=== PATIENT | female | born 1950 | race Hispanic/Latino ===

== ENCOUNTER 2020-05-01 12:18 | Observation (INO) | payer MEDICARE, OTHER ==
[2020-05-01] MEDS ORDERED: ASPIRIN 81 MG CHEWABLE TABLET ONE (13:18)
[2020-05-01] MEDS ORDERED: ONDANSETRON 4 MG/2 ML VIAL ONE (13:18)
[2020-05-01] MEDS ORDERED: MORPHINE 2 MG/ML SYR ONE ×2 (13:18→16:46)
[2020-05-01] MEDS ORDERED: NA CHLORIDE 0.9% 1,000 ML ONE (13:18)
[2020-05-01 13:28] LABS: Absolute Lymphocytes (CBC) 1.9 K/uL (0.7-4.9); Basophils % 1.1 % (0-1.3); Hematocrit 39.4 % (36.0-45.0); Lymphocytes % 19.8 % (15.3-44.8); MPV 11.3 fL (7.6-11.3); RBC Red Blood Cell Count 4.62 M/uL (3.86-4.86)
[2020-05-01 13:35] LABS: Protime INR 0.95
--- NOTE | 2020-05-01 13:40 | RAD REPORT ---
EXAM DESCRIPTION: RAD - Chest Single View - 05/01/2020 1:29 pm CLINICAL HISTORY: PAIN COMPARISON: December 2017 TECHNIQUE: AP portable chest image was obtained 05/01/2020 1:29 pm . FINDINGS: Lungs are clear. Pulmonary vasculature within normal limits. Heart size is upper normal to slightly enlarged likely the affects of supine portable imaging. No significant failure or volume ov erload. No measurable pleural effusion and no pneumothorax. No acute bony abnormality seen. No acute aortic findings suspected. IMPRESSION: No acute cardiopulmonary process. No significant change from comparison study.
--- NOTE | 2020-05-01 13:41 | RAD REPORT ---
EXAM DESCRIPTION: RAD - Hip Right 2 View - 05/01/2020 1:29 pm CLINICAL HISTORY: PAIN COMPARISON: No comparisons FINDINGS: AP and frog-leg views of the right hip were obtained. There is no fracture or dislocation. No AVN or focal head abnormality. Lower lumbar degenerative morrison ges are present only partially imaged. No significant SI joint abnormality seen. No suspicious or sig nificant soft tissue finding. Cluster of calcific densities lateral to the greater trochanter are pro bably posttraumatic soft tissue calcifications or tendon calcifications. IMPRESSION: Negative right hip examination for acute or significant findings. The amount of overlying soft tissue is limiting. If there are ongoing concerns for pelvic, proximal f emur or soft tissue abnormality, follow-up CT imaging could be performed.
[2020-05-01 13:50] LABS: ALT/SGPT 29 U/L (12-78); AST/SGOT 21 U/L (15-37); Albumin 3.7 g/dL (3.4-5.0); Alkaline Phosphatase 50 U/L (45-117); BUN Blood Urea Nitrogen 33 mg/dL (7-18); Bicarbonate 24 mmol/L (21-32); Bilirubin Direct 0.1 mg/dL (0-0.2); Bilirubin Total 0.3 mg/dL (0.2-1.0); Glucose Level 85 mg/dL (74-106); Lipase 179 U/L (73-393); Magnesium 2.1 mg/dL (1.8-2.4); NT PRO-BNP 238 pg/mL (<125); Potassium 3.8 mmol/L (3.5-5.1); Protein, Total 7.7 g/dL (6.4-8.2); Sodium Level 143 mmol/L (136-145); Troponin (Emerg Dept Use Only) < 0.02 ng/mL (0.0-0.045)
[2020-05-01 14:20] LABS: Urine Blood NEGATIVE (NEG); Urine Glucose 3+ (NEG); Urine Protein NEGATIVE (NEG); Urine Specific Gravity 1.025 (1.005-1.030)
--- NOTE | 2020-05-01 14:21 | RAD REPORT ---
EXAM DESCRIPTION: CT - Angio Aorta For Dissection - 05/01/2020 1:44 pm CLINICAL HISTORY: CHEST PAIN, abdominal pain COMPARISON: None. TECHNIQUE: Dynamically enhanced 3 mm thick images of the chest, abdomen, and upper pelvis were obtai jolene during administration of approximately 150mL Isovue 370 IV contrast. Sagittal and coronal reconst ruction images were generated using MIP and reviewed. Exam utilizes a protocol to evaluate entire cou rse of the aorta. All CT scans are performed using dose optimization technique as appropriate and may include automated exposure control or mA/KV adjustment according to patient size. FINDINGS: Aorta is normal in diameter with no dissection or other acute aortic findings. Reconstruct ion images show no significant findings. Pulmonary arteries are normal as well. No cardiomegaly, pericardial thickening or pericardial effusio n. No mass or infiltrate in the lung parenchyma. No pleural thickening, pleural effusion or pneumothorax . No abnormal mediastinal or hilar mass or lymphadenopathy seen. No chest wall mass or abnormal axillar y lymphadenopathy. Celiac, SMA and renal arteries show no suspicious findings. Solid abdominal viscera and bowel show no significant findings. Bilateral renal cysts are present. Partially filled urinary bladder shows no suspicious finding. Uterus is absent. Atrophic ovaries are seen. No adnexal mass. Pelvic floor laxity is seen. Sigmoid diverticulosis is present without diverticulitis. No abnormal lymphadenopathy. No a bdominal wall or inguinal hernias identified. No peritoneal or retroperitoneal free air, free fluid o r inflammatory stranding. Disc and bone degenerative changes are present. No pelvic or proximal femur fracture identified. Soft tissue calcifications are present lateral to the right greater trochanter. Intramuscular edema and A eliza stranding present involving gluteus minimus muscle. IMPRESSION: Muscle and soft tissue injury lateral superior margin of the right greater trochanter. A t least some component is chronic with dystrophic calcifications present. No fracture of the femur or pelvis. No inguinal hernia or other finding for right-sided pelvic and hi p pain. No acute finding of the aorta. Patient has minimal atherosclerotic calcification. As detailed above, no other acute or significant findings identifiable. No other significant findings on chest, abdomen and upper pelvis examination.
--- NOTE | 2020-05-01 14:57 | ER ---
Nurse's Notes [facility] Name: Roseline Fink Age: 69 yrs Sex: Female : 1950 Arrival Date: 05/01/2020 Time: 12:24 Bed 19 Private MD: Abhi Quinn V Diagnosis: Chest pain, unspecified;Other bursitis of hip, right hip;Type 2 diabetes mellitus Presentation: 05/01 12:35 Chief complaint: Patient states: 1. R hip/R groin, R lower back pain for 2 days. Denies ll1 fever, denies urinary symptoms. 2. Generalized chest pressure for 3 days. No cough or fever. Coronavirus screen: Client denies travel out of the [place] in the last 14 days. difficulty breathing, fatigue, shortness of breath, Client presents with at least one sign or symptom that may indicate coronavirus-19. Standard/surgical mask placed on the client. Ebola Screen: Patient denies travel to an Ebola-affected area in the 21 days before illness onset. Initial Sepsis Screen: Does the patient meet any 2 criteria? No. Patient's initial sepsis screen is negative. Does the patient have a suspected source of infection? No. Patient's initial sepsis screen is negative. Risk Assessment: Do you want to hurt yourself or someone else? Patient reports no desire to harm self or others. Onset of symptoms was April 28, 2020. 12:35 Method Of Arrival: Ambulatory ll1 12:35 Acuity: RAYA 3 ll1 Historical: - Allergies: 12:35 No Known Allergies; ll1 - PMHx: 12:35 High Cholesterol; Hypertension; Diabetes - NIDDM; ll1 - PSHx: 12:35 Appendectomy; exp. lap-tumor removed from ovary; Hysterectomy; ll1 - Immunization history:: Flu vaccine is not up to date. - Social history:: Smoking status: Patient denies any tobacco usage or history of. - Family history:: not pertinent. Screenin:42 Abuse screen: Denies threats or abuse. Nutritional screening: No deficits noted. vg1 Tuberculosis screening: No symptoms or risk factors identified. Fall Risk No fall in past 12 months (0 pts). No secondary diagnosis (0 pts). IV access (20 points). Ambulatory Aid- None/Bed Rest/Nurse Assist (0 pts). Gait- Normal/Bed Rest/Wheelchair (0 pts) Mental Status- Oriented to own ability (0 pts). Total Adhikari Fall Scale indicates No Risk (0-24 pts). Assessment: 12:40 General: Appears in no apparent distress. comfortable, Behavior is calm, cooperative. vg1 Pain: Complains of pain in chest, Right hip and Right side of back Pain radiates to Pain in Right hip radiates down to right leg and up the right side of the back Pain currently is 10 out of 10 on a pain scale. Pain began 2-3 days ago. Neuro: Level of Consciousness is awake, alert, obeys commands, Oriented to person, place, time, situation. Cardiovascular: Heart tones S1 S2 Patient's skin is warm and dry. Respiratory: Airway is patent Respiratory effort is even, unlabored, Breath sounds are clear bilaterally. GI: No signs and/or symptoms were reported involving the gastrointestinal system. : No signs and/or symptoms were reported regarding the genitourinary system. EENT: No signs and/or symptoms were reported regarding the EENT system. Derm: Skin is intact, is healthy with good turgor. Musculoskeletal: Circulation, motion, and sensation intact. 14:21 Reassessment: Patient appears in no apparent distress at this time. Patient and/or vg1 family updated on plan of care and expected duration. Pain level reassessed. Patient is alert, oriented x 3, equal unlabored respirations, skin warm/dry/pink. Patient stated pain has subsided to 8/10. 19:57 Reassessment: attempted to call report. vg1 Vital Signs: 12:35 Weight 86.18 kg; Height 5 ft. 3 in. (160.02 cm); Pain 10/10; ll1 12:42 BP 162 / 55; Pulse 62; Resp 18; Pulse Ox 100% on R/A; vg1 13:20 BP 142 / 44; Pulse 58; Resp 20; Pulse Ox 100% ; vg1 14:00 BP 136 / 60; Pulse 58; Resp 22; Pulse Ox 100% on R/A; vg1 15:00 BP 138 / 50; Pulse 55; Resp 20; Pulse Ox 99% on R/A; vg1 15:45 BP 128 / 46; Pulse 55; Resp 22; Pulse Ox 98% on R/A; vg1 16:00 BP 142 / 58; Pulse 53; Resp 24; Pulse Ox 98% on R/A; vg1 17:00 BP 118 / 57; Pulse 55; Resp 20; Pulse Ox 97% on R/A; vg1 18:00 BP 114 / 72; Pulse 59; Resp 18; Pulse Ox 98% on R/A; vg1 19:00 BP 140 / 62; Pulse 57; Resp 20; Pulse Ox 100% on R/A; vg1 12:35 Body Mass Index 33.66 (86.18 kg, 160.02 cm) ll1 ED Course: 12:24 Patient arrived in ED. mr 12:24 Abhi Quinn MD is Private Physician. mr 12:28 Almaz Tse, RN is Primary Nurse. vg1 12:34 Arm band placed on Patient placed in an exam room, on a stretcher, Patient notified of ll1 wait time. 12:37 Richy Bal MD is Attending Physician. [facility] 12:37 Triage completed. ll1 12:42 Patient has correct armband on for positive identification. Placed in gown. Bed in low vg1 position. Side rails up X 1. 12:57 EKG done, by ED staff, reviewed by Richy Bal MD. vg1 13:15 Initial lab(s) drawn, by me, sent to lab. Inserted saline lock: 20 gauge in right vg1 antecubital area, using aseptic technique. Blood collected. 13:29 XRAY Chest (1 view) In Process Unspecified. EDMS 13:29 Hip Right 2 View XRAY In Process Unspecified. EDMS 13:44 CT Aorta for Dissection In Process Unspecified. EDMS 14:56 Abhi Quinn MD is Hospitalizing Provider. evan 15:58 COVID swab sent to lab. vg1 18:43 Repeat lab(s) drawn. by me, sent to lab. dh3 19:39 Primary Nurse role handed off by Almaz Tse, RN mw2 19:53 Almaz Tse, RN is Primary Nurse. vg1 19:56 No provider procedures requiring assistance completed. Patient admitted, IV remains in vg1 place. 20:00 Repeat lab(s) drawn. by me, sent to lab. jp3 Administered Medications: 13:24 Drug: NS 0.9% 1000 ml Route: IV; Rate: 125 ml/hr; Site: right antecubital; vg1 20:20 Follow up: IV Status: Infusion continued upon admission vg1 13:24 Drug: morphine 2 mg {Note: rass0.} Route: IVP; Site: right antecubital; vg1 14:34 Follow up: Response: Pain is decreased vg1 13:24 Drug: Zofran (Ondansetron) 4 mg Route: IVP; Site: right antecubital; vg1 14:34 Follow up: Response: No adverse reaction vg1 13:24 Drug: Aspirin Chewable Tablet 162 mg Route: PO; vg1 14:33 Follow up: Response: No adverse reaction vg1 15:36 Drug: Lovenox 1 mg/kg Route: Sub-Q; Site: abdomen; vg1 18:52 Follow up: Response: No adverse reaction vg1 15:36 Drug: Pepcid 20 mg Route: IVP; Site: right antecubital; vg1 18:52 Follow up: Response: No adverse reaction vg1 15:37 Drug: Mucomyst - Acetylcysteine 600 mg Route: PO; vg1 18:52 Follow up: Response: No adverse reaction vg1 16:48 Drug: morphine 2 mg Route: IVP; Site: right antecubital; vg1 18:53 Follow up: Response: Pain is unchanged, physician notified vg1 Outcome: 14:56 Decision to Hospitalize by ProviderRowdy gordon 20:17 Admitted to Med/surg accompanied by anita, via wheelchair, room 426, with chart, Report vg1 called to BRADEN Menard 20:17 Condition: stable 20:17 Instructed on the need for admit. 20:30 Patient left the ED. mw2 Signatures: Dispatcher [employer] EDPA Richy Bal MD MD cha Rivera, Mary mr Bruno, Caity 3 Radha Montesinos mw2 Franklin Matthews jp3 Almaz Tse, RN RN vg1 Savanna Mak RN RN ll1
--- NOTE | 2020-05-01 14:57 | EDPHYS ---
Physician Documentation [facility] Name: Roseline Fink Age: 69 yrs Sex: Female : 1950 Arrival Date: 05/01/2020 Time: 12:24 Bed 19 Private MD: Abhi Quinn V ED Physician Richy Bal HPI: 05/01 14:40 This 69 yrs old Female presents to ER via Ambulatory with complaints of Hip evan Pain, Back Pain. 14:40 The patient or guardian reports pain. that occurred at home. The complaints affect the evan pelvis. Onset: The symptoms/episode began/occurred 2 day(s) ago. Modifying factors: The symptoms are alleviated by nothing, the symptoms are aggravated by nothing. Associated signs and symptoms: Loss of consciousness: the patient experienced no loss of consciousness, Pertinent positives: weakness. Severity of symptoms: At their worst the symptoms were mild, moderate, in the emergency department the symptoms have improved, mildly. The patient has experienced similar episodes in the past, several times. Historical: - Allergies: 12:35 No Known Allergies; ll1 - PMHx: 12:35 High Cholesterol; Hypertension; Diabetes - NIDDM; ll1 - PSHx: 12:35 Appendectomy; exp. lap-tumor removed from ovary; Hysterectomy; ll1 - Immunization history:: Flu vaccine is not up to date. - Social history:: Smoking status: Patient denies any tobacco usage or history of. - Family history:: not pertinent. ROS: 14:40 Constitutional: Negative for fever, chills, and weight loss, Eyes: Negative for injury, evan pain, redness, and discharge, ENT: Negative for injury, pain, and discharge, Neck: Negative for injury, pain, and swelling, Respiratory: Negative for shortness of breath, cough, wheezing, and pleuritic chest pain, Abdomen/GI: Negative for abdominal pain, nausea, vomiting, diarrhea, and constipation, Back: Negative for injury and pain, : Negative for injury, bleeding, discharge, and swelling, MS/Extremity: Negative for injury and deformity, Skin: Negative for injury, rash, and discoloration, Neuro: Negative for headache, weakness, numbness, tingling, and seizure, Psych: Negative for depression, anxiety, suicide ideation, homicidal ideation, and hallucinations, Allergy/Immunology: Negative for hives, rash, and allergies, Endocrine: Negative for neck swelling, polydipsia, polyuria, polyphagia, and marked weight changes, Hematologic/Lymphatic: Negative for swollen nodes, abnormal bleeding, and unusual bruising. 14:40 Cardiovascular: Positive for chest pain. Exam: 14:40 Constitutional: This is a well developed, well nourished patient who is awake, alert, evan and in no acute distress. Head/Face: Normocephalic, atraumatic. Eyes: Pupils equal round and reactive to light, extra-ocular motions intact. Lids and lashes normal. Conjunctiva and sclera are non-icteric and not injected. Cornea within normal limits. Periorbital areas with no swelling, redness, or edema. ENT: Nares patent. No nasal discharge, no septal abnormalities noted. Tympanic membranes are normal and external auditory canals are clear. Oropharynx with no redness, swelling, or masses, exudates, or evidence of obstruction, uvula midline. Mucous membranes moist. Neck: Trachea midline, no thyromegaly or masses palpated, and no cervical lymphadenopathy. Supple, full range of motion without nuchal rigidity, or vertebral point tenderness. No Meningismus. Chest/axilla: Normal chest wall appearance and motion. Nontender with no deformity. No lesions are appreciated. Cardiovascular: Regular rate and rhythm with a normal S1 and S2. No gallops, murmurs, or rubs. Normal PMI, no JVD. No pulse deficits. Respiratory: Lungs have equal breath sounds bilaterally, clear to auscultation and percussion. No rales, rhonchi or wheezes noted. No increased work of breathing, no retractions or nasal flaring. Abdomen/GI: Soft, non-tender, with normal bowel sounds. No distension or tympany. No guarding or rebound. No evidence of tenderness throughout. Back: No spinal tenderness. No costovertebral tenderness. Full range of motion. Skin: Warm, dry with normal turgor. Normal color with no rashes, no lesions, and no evidence of cellulitis. MS/ Extremity: Pulses equal, no cyanosis. Neurovascular intact. Full, normal range of motion. Neuro: Awake and alert, GCS 15, oriented to person, place, time, and situation. Cranial nerves II-XII grossly intact. Motor strength 5/5 in all extremities. Sensory grossly intact. Cerebellar exam normal. Normal gait. Psych: Awake, alert, with orientation to person, place and time. Behavior, mood, and affect are within normal limits. 14:40 Musculoskeletal/extremity: DVT Exam: No signs of deep vein thrombosis. no pain, no swelling, no tenderness, negative Homans' sign noted on exam, no appreciated bluish discoloration, no erythema, no increased warmth. Vital Signs: 12:35 Weight 86.18 kg; Height 5 ft. 3 in. (160.02 cm); Pain 10/10; ll1 12:42 BP 162 / 55; Pulse 62; Resp 18; Pulse Ox 100% on R/A; vg1 13:20 BP 142 / 44; Pulse 58; Resp 20; Pulse Ox 100% ; vg1 14:00 BP 136 / 60; Pulse 58; Resp 22; Pulse Ox 100% on R/A; vg1 15:00 BP 138 / 50; Pulse 55; Resp 20; Pulse Ox 99% on R/A; vg1 15:45 BP 128 / 46; Pulse 55; Resp 22; Pulse Ox 98% on R/A; vg1 16:00 BP 142 / 58; Pulse 53; Resp 24; Pulse Ox 98% on R/A; vg1 17:00 BP 118 / 57; Pulse 55; Resp 20; Pulse Ox 97% on R/A; vg1 18:00 BP 114 / 72; Pulse 59; Resp 18; Pulse Ox 98% on R/A; vg1 19:00 BP 140 / 62; Pulse 57; Resp 20; Pulse Ox 100% on R/A; vg1 12:35 Body Mass Index 33.66 (86.18 kg, 160.02 cm) ll1 MDM: 12:37 Patient medically screened. evan 14:43 Differential diagnosis: bursitis, arthritis, strain. Data reviewed: vital signs, nurses evan notes, lab test result(s), EKG, radiologic studies, CT scan, plain films. Data interpreted: quality assurance monitor final: rate is 59 beats/min, rhythm is sinus bradycardia. Test interpretation: by ED physician or midlevel provider: ECG, plain radiologic studies. Counseling: I had a detailed discussion with the patient and/or guardian regarding: the historical points, exam findings, and any diagnostic results supporting the discharge/admit diagnosis, lab results, radiology results, the need for outpatient follow up. 05/01 12:45 Order name: Basic Metabolic Panel [facility] 05/01 12:45 Order name: CBC with Diff [facility] 05/01 12:45 Order name: LFT's [facility] 05/01 12:45 Order name: Magnesium; Complete Time: 14:35 [facility] 05/01 12:45 Order name: NT PRO-BNP; Complete Time: 14:35 [facility] 05/01 12:45 Order name: PT-INR; Complete Time: 14:35 [facility] 05/01 12:45 Order name: Troponin (emerg Dept Use Only); Complete Time: 14:35 [facility] 05/01 12:45 Order name: Lipase; Complete Time: 14:35 [facility] 05/01 12:46 Order name: Basic Metabolic Panel; Complete Time: 14:35 [facility] 05/01 12:46 Order name: CBC with Automated Diff; Complete Time: 14:35 [facility] 05/01 12:46 Order name: Liver (Hepatic) Function; Complete Time: 14:35 [facility] 05/01 13:08 Order name: Urine Dipstick--Ancillary (enter results) 05/01 13:08 Order name: Urine Dipstick-Ancillary; Complete Time: 14:35 [facility] 05/01 14:55 Order name: COVID-19 : Document "Date of Symptom Onset" if Symptomatic. [facility] 05/01 12:45 Order name: XRAY Chest (1 view); Complete Time: 14:35 [facility] 05/01 12:45 Order name: EKG; Complete Time: 12:46 [facility] 05/01 12:45 Order name: Hip Right 2 View XRAY; Complete Time: 14:35 [facility] 05/01 12:45 Order name: CT Aorta for Dissection; Complete Time: 14:35 [facility] 05/01 16:02 Order name: CREATININE WHOLE BLOOD [facility] 05/01 16:46 Order name: SARS-COV-2 RT PCR [facility] 05/01 17:53 Order name: Glucose, Ancillary Testing [facility] 05/01 18:52 Order name: Glucose, Ancillary Testing [facility] 05/01 19:23 Order name: Troponin I [facility] 05/01 12:45 Order name: Cardiac monitoring; Complete Time: 12:56 [facility] 05/01 12:45 Order name: EKG - Nurse/Tech; Complete Time: 12:57 [facility] 05/01 12:45 Order name: IV Saline Lock; Complete Time: 13:25 [facility] 05/01 12:45 Order name: Labs collected and sent; Complete Time: 13:25 [facility] 05/01 12:45 Order name: O2 Per Protocol; Complete Time: 12:57 [facility] 05/01 12:45 Order name: O2 Sat Monitoring; Complete Time: 12:57 [facility] 05/01 12:45 Order name: Urine Dipstick-Ancillary (obtain specimen); Complete Time: 13:07 [facility] 05/01 15:02 Order name: CONS Physician Consult EDMS Administered Medications: 13:24 Drug: NS 0.9% 1000 ml Route: IV; Rate: 125 ml/hr; Site: right antecubital; vg1 20:20 Follow up: IV Status: Infusion continued upon admission vg1 13:24 Drug: morphine 2 mg {Note: rass0.} Route: IVP; Site: right antecubital; vg1 14:34 Follow up: Response: Pain is decreased vg1 13:24 Drug: Zofran (Ondansetron) 4 mg Route: IVP; Site: right antecubital; vg1 14:34 Follow up: Response: No adverse reaction vg1 13:24 Drug: Aspirin Chewable Tablet 162 mg Route: PO; vg1 14:33 Follow up: Response: No adverse reaction vg1 15:36 Drug: Lovenox 1 mg/kg Route: Sub-Q; Site: abdomen; vg1 18:52 Follow up: Response: No adverse reaction vg1 15:36 Drug: Pepcid 20 mg Route: IVP; Site: right antecubital; vg1 18:52 Follow up: Response: No adverse reaction vg1 15:37 Drug: Mucomyst - Acetylcysteine 600 mg Route: PO; vg1 18:52 Follow up: Response: No adverse reaction vg1 16:48 Drug: morphine 2 mg Route: IVP; Site: right antecubital; vg1 18:53 Follow up: Response: Pain is unchanged, physician notified vg1 Disposition: 05/01/20 14:56 Hospitalization ordered by Abhi Quinn for Observation. Preliminary diagnosis are Chest pain, unspecified, Other bursitis of hip, right hip, Type 2 diabetes mellitus. - Bed requested for Telemetry/MedSurg (observation). - Status is Observation. mw2 - Condition is Fair. - Problem is new. - Symptoms have improved. Signatures: Dispatcher [employer] EDRichy Delgado MD MD cha Garcia, Cindy, RN RN cg Radha Montesinos mw2 Almaz Tse, RN RN 1 Savanna Mak, RN RN ll1 Corrections: (The following items were deleted from the chart) 19:50 14:56 Hospitalization Ordered by Abhi Quinn MD for Observation. Preliminary diagnosis cg is Chest pain, unspecified; Other bursitis of hip, right hip; Type 2 diabetes mellitus. Bed requested for Telemetry/MedSurg (observation). Status is Observation. Condition is Fair. Problem is new. Symptoms have improved. [facility] 20:30 19:50 05/01/2020 14:56 Hospitalization Ordered by Abhi Quinn MD for Observation. mw2 Preliminary diagnosis is Chest pain, unspecified; Other bursitis of hip, right hip; Type 2 diabetes mellitus. Bed requested for Telemetry/MedSurg (observation). Status is Observation. Condition is Fair. Problem is new. Symptoms have improved. cg
[2020-05-01] MEDS ORDERED: ACETYLCYST 20% 800 MG/4 ML VIAL PO ONE (15:00)
[2020-05-01] MEDS ORDERED: ENOXAPARIN 100 MG/ML SYR SQ ONE (15:45)
[2020-05-01] MEDS ORDERED: FAMOTIDINE 20 MG/2 ML VIAL IV ONE (15:45)
[2020-05-01] MEDS ORDERED: ONDANSETRON 4 MG/2 ML VIAL IV PRN (16:25)
[2020-05-01] MEDS ORDERED: GLUCAGON 1 MG/VIAL IM PRN (16:25)
[2020-05-01] MEDS: INSULIN -REGULAR HUMAN 50 UNIT/0.5 ML ML SQ SCH ×2 (16:30→21:00)
[2020-05-01] MEDS ORDERED: D50W 25 GM/50 ML VIAL IV PRN (17:01)
[2020-05-01] MEDS ORDERED: ACETAMINOPHEN 325 MG TABLET PO PRN (17:06)
[2020-05-01] MEDS ORDERED: MORPHINE 2 MG/ML SYR IV PRN (17:08)
[2020-05-01] MEDS ORDERED: D50W 25 GM/50 ML SYRINGE IV ONE (18:06)
[2020-05-01 18:42] VITALS: BMI 34.7
[2020-05-01] MEDS: FAMOTIDINE 20 MG/2 ML VIAL IV SCH (21:00)
[2020-05-01] MEDS: ENOXAPARIN 80 MG/0.8 ML SQ SCH (21:00)
--- NOTE | 2020-05-01 21:00 | P.SSS ---
Patient History Date of Service: 05/01/20 Reason for admission: R HIP PAIN AND CHEST PAIN History of Present Illness: PAULINA CAME TO ER FOR R SIDE LATERAL HIP PAIN THAT WAS INTRACTABLE. SHE MENTIONED ABOUT HAVING CHEST HEAVINESS OFF AND ON LASTING FOR 2 MINUTES WHILE RESTING. SHE HAS NO FEVER. SHE IS HIGH RISK FOR CAD WITH DM, OBESITY, HTN ETC. Allergies No Known Allergies Allergy (Verified 02/22/16 10:23) - Past Medical/Surgical History Has patient received pneumonia vaccine in the past: Yes - Social History Smoking Status: Never smoker Alcohol use: No CD- Drugs: No Caffeine use: Yes Review of Systems 10-point ROS is otherwise unremarkable Physical Examination - Vital Signs Blood Pressure: 114/72 Pulse: 59 Respirations: 18 Pulse Ox (%): 98 - Physical Exam General: Alert, In no apparent distress, Obese HEENT: Atraumatic, PERRLA, Mucous membr. moist/pink, EOMI, Sclerae nonicteric Neck: Supple, 2+ carotid pulse no bruit, No LAD, Without JVD or thyroid abnormality Respiratory: Clear to auscultation bilaterally, Normal air movement Cardiovascular: Regular rate/rhythm, Normal S1 S2 Gastrointestinal: Normal bowel sounds, No tenderness Musculoskeletal: No tenderness Integumentary: No rashes Neurological: Normal gait, Normal speech, Normal strength at 5/5 x4 extr, Normal tone, Normal affect Lymphatics: No axilla or inguinal lymphadenopathy - Studies Laboratory Data (last 24 hrs) 05/01/20 13:15: PT 10.9, INR 0.95 05/01/20 13:15: WBC 9.60, Hgb 12.6, Hct 39.4, Plt Count 306 05/01/20 13:15: Sodium 143, Potassium 3.8, BUN 33 H, Creatinine 1.26, Glucose 85, Magnesium 2.1, Total Bilirubin 0.3, AST 21, ALT 29, Alkaline Phosphatase 50, Lipase 179 - Diagnosis (Problem(s)) (1) Atypical chest pain Current Visit: Yes Status: Acute Plan: SHE IS HIGH RISK FOR CAD. WILL NEED ST TEST OR CATH. CARDIOLOGY IS CONSULTED. LOVENOX SC ASPIRIN DAILY. (2) Diabetes Current Visit: Yes Status: Chronic Plan: SHE HAS BEEN NON COMPLIANT ABOUT DIET FOR LAST COUPLE OF YEARS. LAST A1C WAS BETTER COMPARED TO BEFORE DOWN TO 7 RANGE AFTER LOT OF PERSUATION ABOUT DIET AND MEDS LIKE TRULICITY. Qualifiers: Diabetes mellitus type: type 2 (3) HTN (hypertension) Current Visit: Yes Status: Chronic Qualifiers: Hypertension type: essential hypertension Qualified Code(s): I10 - Essential (primary) hypertension (4) Obesity (BMI 30-39.9) Current Visit: Yes Status: Chronic Plan: WEIGHT CONTROL IS A MUST BUT DOES NOT HAPPEN MUCH MOST PATIENTS DON'T FOLLOW PALEO DIET OR ANY DIET ADVISE TO CONTROL CALORIES. (5) Trochanteric bursitis, right hip Current Visit: Yes Status: Acute Plan: DIET ADVISE HAS BEEN GIVEN MANY TIMES TO LOSE WEIGHT. SHE SHOULD NOT GET STEROIDS TOO OFTEN SHE IS A POORLY CONTROLLED DIABETIC. - Disposition Disposition: ROUTINE DISCHARGE
[2020-05-01] MEDS: carvediloL 6.25 MG TAB PO SCH (22:29)
[2020-05-01] MEDS: LOSARTAN POTASSIUM 50 MG TABLET PO SCH (22:29)
[2020-05-01] MEDS: TRAMADOL HCL 50 MG TAB PO PRN (22:29)
[2020-05-01 23:33] VITALS: O2SAT 96
[2020-05-02 04:04] LABS: Absolute Lymphocytes (CBC) 1.7 K/uL (0.7-4.9); Basophils % 0.5 % (0-1.3); Hematocrit 32.8 % (36.0-45.0); Lymphocytes % 14.4 % (15.3-44.8); MPV 11.5 fL (7.6-11.3); RBC Red Blood Cell Count 3.87 M/uL (3.86-4.86)
[2020-05-02 04:12] LABS: Potassium 4.6 mmol/L (3.5-5.1)
[2020-05-02] MEDS: INSULIN -REGULAR HUMAN 50 UNIT/0.5 ML ML SQ SCH ×2 (07:30→11:30)
[2020-05-02] MEDS ORDERED: ASPIRIN EC 81 MG TAB PO SCH (09:00)
[2020-05-02] MEDS: ENOXAPARIN 80 MG/0.8 ML SQ SCH (09:00)
[2020-05-02] MEDS: TRAMADOL HCL 50 MG TAB PO PRN (09:21)
[2020-05-02] MEDS: carvediloL 6.25 MG TAB PO SCH (09:21)
[2020-05-02] MEDS: LOSARTAN POTASSIUM 50 MG TABLET PO SCH (09:22)
[2020-05-02] MEDS: FAMOTIDINE 20 MG/2 ML VIAL IV SCH (09:23)
--- NOTE | 2020-05-02 09:44 | CON ---
Date of Consultation: 05/02/2020 Reason For Consultation: Atypical chest pain. History Of Present Illness: Ms. Fink is a 69-year-old woman, has a history of hypertension, diabe tim, and dyslipidemia. In 2016, she underwent a normal heart catheterization. She actually came int o the hospital with the hip pain that is thought secondary to bursitis. While she is in the hospital , she complains of having had chest pain for the last few weeks that is substernal, pressure-like abdi t has been going on basically constantly for few days. She also has sharp stabbing chest pain. Sagar es nausea, vomiting, diaphoresis, PND, orthopnea, pedal edema, palpitations, or syncope. She has alr robel ruled out for NE. Past Medical History: As stated above. Allergies: NONE. Review of Systems: Negative. Social History: Negative. Family History: Noncontributory. Physical Examination: Vital Signs: Stable, afebrile. HEENT: Negative. Neck: Supple. No bruit. Chest: Clear. Cardiac: Normal. Abdomen: Benign. Extremities: Revealed no clubbing, cyanosis, or edema. Diagnostic Data: All normal. Impression And Plan: Atypical chest pain in a patient with history of diabetes, hypertension, and dy slipidemia. Has had normal heart catheterization 5 years ago, had negative cardiac workup so far. S he takes rifampin, Coreg, insulin, and other diabetic medication. I will continue her present regime n. I am comfortable with her going home. [facility] f sonia. SARAH/EILEEN Voice ID: [id number] Report ID: [id number]
[2020-05-02] MEDS ORDERED: HOME MED 1 EA UNK (Budesonide/Formoterol Fumarate [Symbicort 160-4.5 Mcg Inhaler] 10.2 GM IH PRN (10:49)
[2020-05-02 12:51] VITALS: BP 143/70; TEMP 98.1
[2020-05-02] MEDS ORDERED: HYDRALAZINE 25 MG PO SCH (14:00)
[2020-05-02] MEDS ORDERED: HOME MED 1 EA UNK (Pravastatin Sodium [Pravastatin Sodium] 20 MG Tablet) PO SCH (21:00)
[2020-05-02] MEDS ORDERED: HOME MED 1 EA UNK (Levocetirizine Dihydrochloride [Xyzal] 5 MG Tablet) PO SCH (21:00)
[2020-05-02] MEDS ORDERED: CARVEDILOL 12.5 MG PO SCH (21:00)
[2020-05-02] MEDS ORDERED: LIDOCAINE 4% PATCH TOP ONE (22:07)
--- NOTE | 2020-05-03 05:42 | EKG ---
Test Date: 2020-05-01 Test Time: 12:51:23 Intake Nurse: SHELBY MEASUREMENT RESULTS: Intervals: Rate: 59 RI: QRSD: 90 QT: 396 QTc: 392 [place]: P: RI: QRS: 27 T: -39 INTERPRETIVE STATEMENTS: Junctional rhythm ST & T wave abnormality, consider inferior ischemia ST & T wave abnormality, consider anterior ischemia Abnormal ECG Compared to ECG 08/04/2001 13:49:00 Junctional rhythm now present Possible ischemia now present Sinus rhythm no longer present ST (T wave) deviation still present Electronically Signed On 05-03-20 05:36:15 [employer] by Ankit Centeno
[2020-05-03] MEDS ORDERED: EMPAGLIFLOZIN PO SCH (08:00)
[2020-05-03] MEDS ORDERED: METFORMIN HCL PO SCH (08:00)
[2020-05-03] MEDS ORDERED: HOME MED 1 EA UNK (Losartan Potassium [Losartan Potassium] 100 MG Tablet) PO SCH (09:00)
[2020-05-03] MEDS ORDERED: HOME MED 1 EA UNK (Aspirin [Aspirin] 81 MG Tab.Chew) PO SCH (09:00)
[2020-05-03] MEDS ORDERED: HOME MED 1 EA UNK (Hydrochlorothiazide [Hydrochlorothiazide] 12.5 MG Tablet) PO SCH (09:00)
[2020-05-03] MEDS ORDERED: FENOFIBRATE 145 MG PO SCH (09:00)
== END 2020-05-02 15:19 | disposition home or self-care (01) ==
LOC: ER 12:18 → ERHOLD 15:06 → 4TH 20:20
PROVIDERS: ADMIT Internal Medicine; ATTEND Internal Medicine
DX: R07.89 Other chest pain (principal); M70.61 Trochanteric bursitis, right hip; E11.9 Type 2 diabetes mellitus without complications; I10 Essential (primary) hypertension; E78.5 Hyperlipidemia, unspecified; E78.00 Pure hypercholesterolemia, unspecified; E66.9 Obesity, unspecified; Z68.30 Body mass index [BMI] 30.0-30.9, adult; Z79.4 Long term (current) use of insulin; Z20.822 Contact with and (suspected) exposure to COVID-19; R07.9 Chest pain, unspecified
CPT/HCPCS: 96361; 93005; 85025 ×2; 80048 ×2; 36415; 83735; 85610; 82565; 82947 ×5; 80076; 81003; 84484 ×3; 83690; 83880; 71275; 74175; 71045; 73502; 96375; 96372; 96374; 99285; U0003; Q9967; J1650; J2270 ×2; J7030; J2405 ×2; G0378 ×3

== ENCOUNTER 2022-08-01 09:54 | Emergency (ER) | payer OTHER ==
[2022-08-01] MEDS ORDERED: FAMOTIDINE 20 MG/2 ML VIAL IV ONE (11:03)
[2022-08-01] MEDS ORDERED: METHYLPREDNISOLONE 125 MG INJ ONE (11:03)
[2022-08-01] MEDS ORDERED: NA CHLORIDE 0.9% 500 ML ONE (11:03)
[2022-08-01] MEDS ORDERED: DIPHENHYDRAMINE 50 MG/ML VIAL ONE (11:03)
--- NOTE | 2022-08-01 12:53 | ER ---
Nurse's Notes [facility] Name: Roseline Fink Age: 71 yrs Sex: Female : 1950 Arrival Date: 08/01/2022 Time: 09:54 Bed 9 Private MD: Diagnosis: Acute Allergic Reaction Presentation: 08/01 10:39 Chief complaint: Patient states: Allergic reaction maybe to Flonase from, since jl7 yesterday; took Benadryl and hydrocortisone, swelling noted to upper eye lids , redness to right side of neck, pt reports wheezing and coughing. Coronavirus screen: At this time, the client does not indicate any symptoms associated with coronavirus-19. Ebola Screen: No symptoms or risks identified at this time. Onset: The symptoms/episode began/occurred yesterday. Anaphylaxis evaluation, no signs or symptoms of anaphylaxis were noted. Initial Sepsis Screen: Does the patient meet any 2 criteria? No. Patient's initial sepsis screen is negative. Does the patient have a suspected source of infection? No. Patient's initial sepsis screen is negative. Risk Assessment: Do you want to hurt yourself or someone else? Patient reports no desire to harm self or others. Onset of symptoms was July 31, 2022. 10:39 Method Of Arrival: Ambulatory jl7 10:39 Acuity: RAYA 3 jl7 Triage Assessment: 10:42 General: Appears in no apparent distress. uncomfortable, Behavior is calm, cooperative, jl7 appropriate for age. Pain: Denies pain. Derm: Rash noted that is itchy, red, on right eye, left eye, chest and neck. Historical: - Allergies: 10:42 No Known Allergies; jl7 - Home Meds: 10:42 Humulin 70/30 U-100 Insulin subcutaneous Sub-Q [Active]; Synjardy oral [Active]; jl7 carvedilol oral [Active]; losartan oral [Active]; fenofibrate oral [Active]; Hydralazine Oral [Active]; - PMHx: 10:42 Diabetes - NIDDM; High Cholesterol; Hypertension; jl7 - PSHx: 10:42 Total abdominal hysterectomy; jl7 - Immunization history:: Adult Immunizations unknown. - Social history:: Smoking status: Patient denies any tobacco usage or history of. Screenin:10 [facility] ED Fall Risk Assessment (Adult) History of falling in the last 3 months, kb3 including since admission No falls in past 3 months (0 pts) Confusion or Disorientation No (0 pts) Intoxicated or Sedated No (0 pts) Impaired Gait No (0 pts) Mobility Assist Device Used No (0 pt) Altered Elimination No (0 pt) Score/Fall Risk Level 0 - 2 = Low Risk Oriented to surroundings, Maintained a safe environment, Educated pt \T\ family on fall prevention, incl call for assistance when getting out of bed, Assessed \T\ reinforced patient's understanding of fall precautions, Provided non-skid footwear, Hourly rounding (assess needs \T\ fall precautionary measures) done, Used ambulatory aids as needed (educated on \T\ assisted with), Used gait belt as appropriate. Abuse screen: Denies threats or abuse. Nutritional screening: No deficits noted. Tuberculosis screening: No symptoms or risk factors identified. Assessment: 11:10 Respiratory: Airway is patent Respiratory effort is even, unlabored, Breath sounds are kb3 clear bilaterally. 13:03 Reassessment: Patient appears in no apparent distress at this time. Patient and/or jl7 family updated on plan of care and expected duration. Pain level reassessed. Patient is alert, oriented x 3, equal unlabored respirations, skin warm/dry/pink. Patient states feeling better. Patient states symptoms have improved. Vital Signs: 10:39 Pulse 48; Resp 17; Temp 97.2; Pulse Ox 99% ; Weight 86.18 kg; Height 5 ft. 2 in. ; Pain jl7 0/10; 13:03 BP 184 / 71; Pulse 48; Resp 15; Temp 97.9; Pulse Ox 100% ; Pain 0/10; jl7 10:39 Body Mass Index 34.75 (86.18 kg, 157.48 cm) jl7 10:39 Pain Scale: Adult jl7 13:03 Pain Scale: Adult jl7 ED Course: 09:55 Patient arrived in ED. ts1 09:58 Joss Hong PA is PHCP. jmm 09:58 Sreedhar Morgan MD is Attending Physician. jmm 10:42 Triage completed. jl7 10:42 Arm band placed on right wrist. jl7 11:10 Patient has correct armband on for positive identification. kb3 11:10 No provider procedures requiring assistance completed. Inserted saline lock: 22 gauge kb3 in right antecubital area, using aseptic technique. 13:03 Ludmila Peterson, RN is Primary Nurse. jl7 13:03 IV discontinued, intact, bleeding controlled, No redness/swelling at site. Pressure jl7 dressing applied. Administered Medications: 11:11 Drug: MethylPrednisoLONE IVP 125 mg Route: IVP; Site: right antecubital; kb3 13:04 Follow up: Response: No adverse reaction; Marked relief of symptoms jl7 11:11 Drug: Famotidine IVP 20 mg Route: IVP; Site: right antecubital; kb3 13:04 Follow up: Response: No adverse reaction; Marked relief of symptoms jl7 11:11 Drug: diphenhydrAMINE IVP 12.5 mg Route: IVP; Site: right antecubital; kb3 13:04 Follow up: Response: No adverse reaction; Marked relief of symptoms jl7 11:12 Drug: NS 0.9% IV 500 ml Route: IV; Rate: bolus; Site: right antecubital; kb3 13:04 Follow up: Response: No adverse reaction; IV Intake: 500ml jl7 Medication: 11:10 VIS not applicable for this client. kb3 Intake: 13:04 IV: 500ml; Total: 500ml. jl7 Outcome: 12:52 Discharge ordered by . rodriguez 13:03 Discharged to home ambulatory. jlBlanco 13:03 Condition: stable 13:03 Discharge instructions given to patient, family, Instructed on discharge instructions, follow up and referral plans. medication usage, Demonstrated understanding of instructions, follow-up care, medications, Prescriptions given X 2. 13:05 Patient left the ED. jl7 Signatures: Joss Hong PA PA jmm Leal, Jahala RN RN jl7 Paola Esparza RN RN kb3 Linda Prince PAS PAS ts1
--- NOTE | 2022-08-01 12:53 | EDPHYS ---
Physician Documentation [facility] Name: Roseline Fink Age: 71 yrs Sex: Female : 1950 Arrival Date: 08/01/2022 Time: 09:54 Bed 9 Private MD: ED Physician Sreedhar Morgan HPI: 08/01 10:45 This 71 yrs old Female presents to ER via Ambulatory with complaints of jmm Allergic Reaction. 10:45 Is a 71-year-old female with history of diabetes mellitus, hyperlipidemia, hypertension jmm the presents emerged department with complaints of itching, facial swelling which began last night. Patient states she took Flonase yesterday. Also complains of some shortness of breath and wheezing.. Historical: - Allergies: 10:42 No Known Allergies; jl7 - Home Meds: 10:42 Humulin 70/30 U-100 Insulin subcutaneous Sub-Q [Active]; Synjardy oral [Active]; jl7 carvedilol oral [Active]; losartan oral [Active]; fenofibrate oral [Active]; Hydralazine Oral [Active]; - PMHx: 10:42 Diabetes - NIDDM; High Cholesterol; Hypertension; jl7 - PSHx: 10:42 Total abdominal hysterectomy; jl7 - Immunization history:: Adult Immunizations unknown. - Social history:: Smoking status: Patient denies any tobacco usage or history of. ROS: 10:45 Constitutional: Negative for fever, chills, and weight loss, Cardiovascular: Negative jmm for chest pain, palpitations, and edema. 10:45 Respiratory: Positive for cough. 10:45 Skin: Positive for rash. 10:45 All other systems are negative. Exam: 10:45 Constitutional: This is a well developed, well nourished patient who is awake, alert, jmm and in no acute distress. 10:45 Eyes: EOMI, no conjunctival erythema appreciated ENT: Moist Mucus Membranes Neck: Trachea midline, Supple 10:45 Chest/axilla: Normal chest wall appearance and motion. Cardiovascular: Regular rate and rhythm. No edema appreciated Respiratory: Normal respirations, no respiratory distress appreciated Abdomen/GI: Non distended Back: Normal ROM 10:45 MS/ Extremity: Moves all extremities, no obvious deformities appreciated, no edema noted to the lower extremities Neuro: Awake and alert Psych: Behavior is normal, Mood is normal, Patient is cooperative and pleasant 10:45 Head/face: Noted is swelling, that is mild, of the right eye and left eye. 10:45 ENT: Posterior pharynx: is normal. 10:45 Skin: on the neck. Vital Signs: 10:39 Pulse 48; Resp 17; Temp 97.2; Pulse Ox 99% ; Weight 86.18 kg; Height 5 ft. 2 in. ; Pain jl7 0/10; 13:03 BP 184 / 71; Pulse 48; Resp 15; Temp 97.9; Pulse Ox 100% ; Pain 0/10; jl7 10:39 Body Mass Index 34.75 (86.18 kg, 157.48 cm) jl7 10:39 Pain Scale: Adult jl7 13:03 Pain Scale: Adult jl7 MDM: 10:45 Patient medically screened. rodriguez 17:15 Differential diagnosis: urticaria. Data reviewed: vital signs, nurses notes. I rodriguez considered the following discharge prescriptions or medication management in the emergency department Medications were administered in the Emergency Department. See MAR. Counseling: I had a detailed discussion with the patient and/or guardian regarding: the historical points, exam findings, and any diagnostic results supporting the discharge/admit diagnosis, the need for outpatient follow up, to return to the emergency department if symptoms worsen or persist or if there are any questions or concerns that arise at home. ED course: Patient states feeling much better. No respiratory distress appreciated. No pharyngeal edema appreciated. Patient advised to follow-up with PCP and otherwise given strict return precautions. Patient understood and agrees plan of care.. 08/01 10:46 Order name: Saline Lock; Complete Time: 11:11 [facility] Administered Medications: 11:11 Drug: MethylPrednisoLONE IVP 125 mg Route: IVP; Site: right antecubital; kb3 13:04 Follow up: Response: No adverse reaction; Marked relief of symptoms jl7 11:11 Drug: Famotidine IVP 20 mg Route: IVP; Site: right antecubital; kb3 13:04 Follow up: Response: No adverse reaction; Marked relief of symptoms jl7 11:11 Drug: diphenhydrAMINE IVP 12.5 mg Route: IVP; Site: right antecubital; kb3 13:04 Follow up: Response: No adverse reaction; Marked relief of symptoms jl7 11:12 Drug: NS 0.9% IV 500 ml Route: IV; Rate: bolus; Site: right antecubital; kb3 13:04 Follow up: Response: No adverse reaction; IV Intake: 500ml jl7 Disposition: 13:47 Co-signature as Attending Physician, Sreedhar Morgan MD I reviewed the patient's care rn provided by the Advanced Practice Provider and agree with the diagnosis and treatment plan. Disposition Summary: 08/01/22 12:52 Discharge Ordered Location: Home [facility] Condition: Stable [facility] Diagnosis - Acute Allergic Reaction [facility] Followup: [facility] - With: Private Physician - When: 2 - 3 days - Reason: Recheck today's complaints, Continuance of care, Re-evaluation by your physician Discharge Instructions: - Discharge Summary Sheet [facility] Forms: - Medication Reconciliation Form [facility] - Thank You Letter [facility] - Antibiotic Education [facility] - Prescription Opioid Use [facility] Prescriptions: - Hydroxyzine HCl 25 mg Oral Tablet - take 1 tablet by ORAL route every 6 hours As needed; 30 tablet; Refills: 0, [facility] Product Selection Permitted - Medrol ([place]) 4 mg Oral Tablets, Dose Pack - take 1 tablet by ORAL route as directed - follow package instructions; 1 jmm packet; Refills: 0, Product Selection Permitted Signatures: Joss Hong PA PA jm Sreedhar Morgan MD MD rn Leal, Jahala, RN RN jl7 Paola Esparza, BRADEN RN kb3 Corrections: (The following items were deleted from the chart) 17:14 17:13 Is a 71-year-old female with history of diabetes mellitus, hyperlipidemia, jmm hypertension the presents emerged department with complaints of itching, facial swelling which began last night. Patient states she took Flonase yesterday. Also complains of some shortness of breath and wheezing.. m
[2022-08-01 13:26] VITALS: BP 184/71; TEMP 97.9; O2SAT 100
== END 2022-08-01 13:05 | disposition home or self-care (01) ==
LOC: ER 09:54
DX: R21 Rash and other nonspecific skin eruption (principal); R05.9 Cough, unspecified; L29.9 Pruritus, unspecified; R22.9 Localized swelling, mass and lump, unspecified; E11.9 Type 2 diabetes mellitus without complications; I10 Essential (primary) hypertension; Z79.4 Long term (current) use of insulin
CPT/HCPCS: 96375; 96374; 99284; J1200; J2930; J7040

== ENCOUNTER 2023-02-03 14:06 | Emergency (ER) | payer OTHER ==
--- NOTE | 2023-02-03 15:19 | RAD REPORT ---
EXAM DESCRIPTION: RAD - Knee Right 3 View - 02/03/2023 3:13 pm CLINICAL HISTORY: PAIN COMPARISON: <Comparisons> FINDINGS: Diffuse osteopenia is seen. There is a small to moderate joint effusion present. Grossly, no fractures appreciated. Given the osteopenia, recommend CT for further evaluation.
--- NOTE | 2023-02-03 16:24 | RAD REPORT ---
EXAM DESCRIPTION: CT - Knee Right Wo Cont - 02/03/2023 4:08 pm CLINICAL HISTORY: knee pain Fall, trauma, knee pain COMPARISON: Knee Right 3 View dated 02/03/2023 FINDINGS: Moderate osteopenia is seen. There is cortical irregularity with slight displacement invol ving the posterior margin of the tibial plateau which may represent avulsion fracture. Moderate supra patellar joint effusion seen. IMPRESSION: Suspected avulsion fracture involving the posterior tibial plateau. Moderate joint effus ion. All CT scans are performed using dose optimization technique as appropriate and may include automated exposure control or mA/KV adjustment according to patient size.
--- NOTE | 2023-02-03 16:43 | ER ---
Nurse's Notes [facility] Name: Roseline Fink Age: 72 yrs Sex: Female : 1950 Arrival Date: 02/03/2023 Time: 14:06 Bed 9 Private MD: Diagnosis: avulsion fracture involving posterior tibial plateau Presentation: 02/03 15:34 Chief complaint: Patient states: fall onto right knee yesterday. aa5 15:34 Method Of Arrival: Wheelchair aa5 15:34 Coronavirus screen: At this time, the client does not indicate any symptoms associated aa5 with coronavirus-19. Ebola Screen: Patient denies travel to an Ebola-affected area in the 21 days before illness onset. Initial Sepsis Screen: Does the patient meet any 2 criteria? No. Patient's initial sepsis screen is negative. Does the patient have a suspected source of infection? No. Patient's initial sepsis screen is negative. Risk Assessment: Do you want to hurt yourself or someone else? Patient reports no desire to harm self or others. Onset of symptoms was January 2023. 15:34 Acuity: RAYA 4 aa5 Historical: - Allergies: 15:36 No Known Allergies; aa5 - PMHx: 15:36 Diabetes - NIDDM; High Cholesterol; Hypertension; aa5 - PSHx: 15:36 Total abdominal hysterectomy; aa5 - Immunization history:: Adult Immunizations unknown. - Social history:: Smoking status: Patient denies any tobacco usage or history of. Screenin:05 [facility] ED Fall Risk Assessment (Adult) History of falling in the last 3 months, me1 including since admission Yes- single mechanical fall (1 pt) Confusion or Disorientation No (0 pts) Intoxicated or Sedated No (0 pts) Impaired Gait Yes (1 pt) Mobility Assist Device Used Yes (1 pt) Altered Elimination No (0 pt) Score/Fall Risk Level 0 - 2 = Low Risk Maintained a safe environment, Provided non-skid footwear, Hourly rounding (assess needs \T\ fall precautionary measures) done. Abuse screen: Denies threats or abuse. Nutritional screening: No deficits noted. Tuberculosis screening: No symptoms or risk factors identified. Assessment: 18:05 General: Appears uncomfortable, well groomed, well developed, well nourished, Behavior me1 is calm, cooperative, appropriate for age, Reports fell onto right knee yesterday. States she still has right knee pain today. Pain: Complains of pain in right leg and right knee Pain does not radiate. Pain currently is 4 out of 10 on a pain scale. Quality of pain is described as stabbing, Pain began suddenly, Is continuous. Neuro: Level of Consciousness is awake, alert, obeys commands, Oriented to person, place, time, situation, Appropriate for age. Cardiovascular: Capillary refill < 3 seconds Patient's skin is warm and dry. Respiratory: Airway is patent Respiratory effort is even, unlabored, Respiratory pattern is regular, symmetrical. Musculoskeletal: Reports pain in right leg and right knee since yesterday. Vital Signs: 15:34 BP 175 / 55; Pulse 55; Resp 18 S; Temp 98(TE); Pulse Ox 100% on R/A; Weight 83.91 kg aa5 (R); Height 5 ft. 2 in. (R); 18:05 BP 163 / 54; Pulse 59; Resp 17; Pulse Ox 100% on R/A; me1 15:34 Body Mass Index 33.84 (83.91 kg, 157.48 cm) aa5 ED Course: 14:09 Patient arrived in ED. mg5 14:10 [facility] kb 14:10 Burke Scruggs DO is Attending Physician. kb 15:15 Knee Right 3 View XRAY In Process Unspecified. EDMS 15:34 Arm band placed on. aa5 15:36 Triage completed. aa5 16:09 Knee Right Wo Cont In Process Unspecified. EDMS 17:43 Fabiana Lei, RN is Primary Nurse. me1 18:05 Patient has correct armband on for positive identification. Bed in low position. Call me1 light in reach. Side rails up X 1. Provided Education on: POC. Verbalized understanding. . 18:05 No provider procedures requiring assistance completed. Patient did not have IV access me during this emergency room visit. Administered Medications: No medications were administered Medication: 18:05 VIS not applicable for this client. me1 Outcome: 16:43 Discharge ordered by . kb 18:08 Discharged to home via wheelchair, with significant other, me1 18:08 Condition: stable 18:08 Discharge instructions given to patient, Instructed on discharge instructions, follow up and referral plans. Demonstrated understanding of instructions, follow-up care, 18:09 Patient left the ED. me1 Signatures: Dispatcher [employer] Beryl Kitchen, GENI BAUMAN-Yvonne Umana, RN RN aa5 Fabiana Lei RN RN me1 Evie Soler 5
--- NOTE | 2023-02-03 16:43 | EDPHYS ---
Physician Documentation [facility] Name: Roseline Fink Age: 72 yrs Sex: Female : 1950 Arrival Date: 02/03/2023 Time: 14:06 Bed 9 Private MD: ED Physician Burke Scruggs HPI: 02/03 14:20 This 72 yrs old Female presents to ER via Unassigned with complaints of Fall kb Injury, Knee Pain. 14:20 Patient is a 72-year-old female who presents with right knee pain after a fall kb yesterday. States she fell directly onto her right knee and has been hurting since. Reports she has broken that knee in the past that she wanted to make sure everything was okay.. Historical: - Allergies: 15:36 No Known Allergies; aa5 - PMHx: 15:36 Diabetes - NIDDM; High Cholesterol; Hypertension; aa5 - PSHx: 15:36 Total abdominal hysterectomy; aa5 - Immunization history:: Adult Immunizations unknown. - Social history:: Smoking status: Patient denies any tobacco usage or history of. ROS: 14:20 Constitutional: Negative for fever, chills, and weight loss, kb 14:20 MS/extremity: Positive for pain, of the right knee, 14:20 All other systems are negative, Exam: 14:20 Constitutional: This is a well developed, well nourished patient who is awake, alert, kb and in no acute distress. Head/Face: Normocephalic, atraumatic. ENT: Moist Mucous membranes Respiratory: Respirations even and unlabored. No increased work of breathing. Talking in full sentences Skin: Warm, dry with normal turgor. Normal color. MS/ Extremity: Pulses equal, no cyanosis. Neurovascular intact. Full, normal range of motion. Neuro: Awake and alert, GCS 15, oriented to person, place, time, and situation. Moves all extremities. Normal gait. Vital Signs: 15:34 BP 175 / 55; Pulse 55; Resp 18 S; Temp 98(TE); Pulse Ox 100% on R/A; Weight 83.91 kg aa5 (R); Height 5 ft. 2 in. (R); 18:05 BP 163 / 54; Pulse 59; Resp 17; Pulse Ox 100% on R/A; me1 15:34 Body Mass Index 33.84 (83.91 kg, 157.48 cm) aa5 MDM: 14:10 Patient medically screened. kb 14:21 Differential diagnosis: abrasion, contusion, fracture, sprain. Data reviewed: vital kb signs, nurses notes. 16:42 Counseling: I had a detailed discussion with the patient and/or guardian regarding the kb historical points, exam findings, and any diagnostic results supporting the discharge/admit diagnosis, radiology results, the need for outpatient follow up, a orthopedic surgeon, to return to the emergency department if symptoms worsen or persist or if there are any questions or concerns that arise at home. 02/03 14:18 Order name: Knee Right 3 View XRAY; Complete Time: 15:31 kb 02/03 15:34 Order name: Knee Right Wo Cont; Complete Time: 16:26 EDMS 02/03 16:42 Order name: Knee Immobilizer; Complete Time: 17:52 kb Administered Medications: No medications were administered Disposition: 16:50 I was immediately available on-site in the Emergency Department for consultation in the ms3 care of the patient. Disposition Summary: 02/03/23 16:43 Discharge Ordered Notes: Location: Home kb Condition: Stable kb Diagnosis - avulsion fracture involving posterior tibial plateau kb Followup: kb - With: Emergency Department - When: As needed - Reason: Worsening of condition Followup: kb - With: Private Physician - When: 2 - 3 days - Reason: Recheck today's complaints, Continuance of care, Re-evaluation by your physician Discharge Instructions: - Discharge Summary Sheet kb - Displaced Tibial Plateau Fracture kb Forms: - Medication Reconciliation Form kb - Thank You Letter kb - Antibiotic Education kb - Prescription Opioid Use kb - Patient Portal Instructions kb - Leadership Thank You Letter kb Signatures: Dispatcher [employer] Beryl Kitchen, MITUL-Laurie BAUMAN-Yvonne Umana RN RN aa5 Burke Scruggs DO DO ms3
[2023-02-03 18:58] VITALS: TEMP 98; O2SAT 100
[2023-02-03 18:59] VITALS: BP 163/54
== END 2023-02-03 18:09 | disposition home or self-care (01) ==
LOC: ER 14:06
DX: S82.141A Displaced bicondylar fracture of right tibia, initial encounter for closed fracture (principal)
CPT/HCPCS: 73700; 99282

== ENCOUNTER 2024-07-11 07:29 | Emergency (ER) | payer OTHER ==
[2024-07-11] MEDS ORDERED: MORPHINE 2 MG/ML SYR ONE (07:50)
[2024-07-11] MEDS ORDERED: ONDANSETRON 4 MG/2 ML VIAL ONE (07:51)
[2024-07-11] MEDS ORDERED: GABAPENTIN 300 MG CAP ONE (07:51)
[2024-07-11 08:12] LABS: Absolute Basophils 0.1 K/uL (0-0.5); Absolute Eosinophils 0.3 K/uL (0-0.5); Absolute Lymphocytes (CBC) 1.8 K/uL (0.7-4.9); Absolute Neutrophil 7.5 K/uL (1.8-8.0); Basophils % 0.5 % (0-1.3); Eosinophils % 2.6 % (0-4.4); Hematocrit 33.5 % (36.0-45.0); Hemoglobin 11.2 g/dL (12.0-15.0); Lymphocytes % 16.8 % (15.3-44.8); MCH 28.7 pg (27.0-35.0); MCHC 33.4 g/dL (32.0-36.0); MCV 85.9 fL (80-100); MPV 10.5 fL (7.6-11.3); Monocytes % 9.1 % (3.3-12.3); Nucleated Red Blood Cells % 0.1 % (0-0); Platelets 310 thou/uL (152-406); Red Cell Distribution Width 15.4 % (12.1-15.2)
[2024-07-11 08:30] LABS: Albumin/Globulin Ratio 0.8 (1.1-1.8); Anion Gap 8.2 mEq/L (5.0-15.0); Bilirubin Total 0.4 mg/dL (0.2-1.0); Globulin 3.6 g/dL (2.3-3.5); Potassium 4.2 mEq/L (3.5-5.1); Protein, Total 6.6 g/dL (6.4-8.2)
--- NOTE | 2024-07-11 09:08 | RAD REPORT ---
EXAMINATION: CT ABDOMEN AND PELVIS WITHOUT CONTRAST CLINICAL INDICATION: RLQ abd pain, low back pain TECHNIQUE: CT abdomen and pelvis was performed, without IV contrast, as per department protocol. Axia l, sagittal and coronal reconstructions were obtained. One or more of the following dose reduction techniques were used: Automated exposure control, adjustment of the mA and kV according to the patien t size, and iterative reconstruction. Unless otherwise specified, incidental findings do not require dedicated imaging follow-up. COMPARISON: No prior exam. FINDINGS: The lack of intravenous contrast limits the sensitivity of this exam for evaluation of solid visceral organs, vascular structures, and retroperitoneum. LOWER CHEST: The visualized lung bases are clear. LIVER:Normal in size and contour. No focal lesion. Grossly unremarkable gallbladder. SPLEEN: Normal size. No focal lesion. PANCREAS: No mass, ductal dilation, or moni-pancreatic fluid. ADRENALS: Normal; no mass. KIDNEYS AND URETERS: There is evidence of a 4 mm calculus in the bladder likely recently passed from the right system. There is mild to moderate residual right-sided hydronephrosis and hydroureter. 4 mm calculus is seen superior pole right kidney. Several left-sided renal cysts. No hydronephrosis o r mass left kidney. URINARY BLADDER: Normal contour. GASTROINTESTINAL TRACT: No evidence of bowel obstruction, significant free fluid, free air or abscess . There is mild diverticulosis coli of the sigmoid colon without diverticulitis. APPENDIX: Appendix not visualized, but no inflammatory changes in region of appendix. LYMPH NODES: No lymphadenopathy. MUSCULOSKELETAL: L3 vertebroplasty cement. Mild anterolisthesis of L3 on 4. IMPRESSION: [id number] residual hydronephrosis and hydroureter likely a result of a recently passed 4 mm ca lculus that is now within the urinary bladder. Additional nonobstructing right renal calculus.
[2024-07-11] MEDS ORDERED: NA CHLORIDE 0.9% 500 ML ONE (09:21)
--- NOTE | 2024-07-11 09:59 | ER ---
Nurse's Notes [facility] Name: Roseline Fink Age: 73 yrs Sex: Female : 1950 Arrival Date: 07/11/2024 Time: 07:29 Bed 20 Private MD: Diagnosis: Urinary calculus, unspecified Presentation: 07/11 07:40 Chief complaint: Patient states: she has been having right lower back/right hip and ap3 right leg pain since Thursday07/08/24. patient states he pain is currently a 7/10 on the pain scale. Coronavirus screen: At this time, the client does not indicate any symptoms associated with coronavirus-19. Ebola Screen: No symptoms or risks identified at this time. Initial Sepsis Screen: Does the patient meet any 2 criteria? No. Patient's initial sepsis screen is negative. Does the patient have a suspected source of infection? No. Patient's initial sepsis screen is negative. Risk Assessment: Do you want to hurt yourself or someone else? Patient reports no desire to harm self or others. Onset of symptoms was July 08, 2024. Transition of care: patient was not received from another setting of care. 07:40 Method Of Arrival: Ambulatory ap3 07:40 Acuity: RAYA 3 ap3 Triage Assessment: 07:42 General: Appears in no apparent distress. Behavior is calm, cooperative, appropriate ap3 for age. Pain: Complains of pain in right hip and right leg Pain currently is 7 out of 10 on a pain scale. Pain began gradually, 2-3 days ago. Neuro: Level of Consciousness is awake, alert, obeys commands, Oriented to person, place, time, situation, Appropriate for age. Cardiovascular: Patient's skin is warm and dry. Respiratory: Airway is patent Respiratory effort is even, unlabored, Respiratory pattern is regular, symmetrical. GI: Reports lower abdominal pain, nausea. Historical: - Allergies: 07:42 No Known Allergies; ap3 - PMHx: 07:42 Diabetes - NIDDM; High Cholesterol; Hypertension; ap3 - PSHx: 07:42 Total abdominal hysterectomy; ap3 - Immunization history:: Client reports receiving the 2nd dose of the Covid vaccine, Flu vaccine is up to date. - Infectious Disease History:: Denies. - Social history:: Smoking status: Patient denies any tobacco usage or history of. - Family history:: not pertinent. - Hospitalizations: : No recent hospitalization is reported. Screenin:43 [facility] ED Fall Risk Assessment (Adult) History of falling in the last 3 months, ap3 including since admission No falls in past 3 months (0 pts) Confusion or Disorientation No (0 pts) Intoxicated or Sedated No (0 pts) Impaired Gait No (0 pts) Mobility Assist Device Used No (0 pt) Altered Elimination No (0 pt) Score/Fall Risk Level 0 - 2 = Low Risk Oriented to surroundings, Maintained a safe environment, Educated pt \T\ family on fall prevention, incl call for assistance when getting out of bed, Assessed \T\ reinforced patient's understanding of fall precautions, Hourly rounding (assess needs \T\ fall precautionary measures) done, Used ambulatory aids as needed (educated on \T\ assisted with). Abuse screen: Denies threats or abuse. Nutritional screening: No deficits noted. Tuberculosis screening: No symptoms or risk factors identified. Assessment: 10:15 GI: Bowel sounds present X 4 quads. Abd is soft X 4 quads. me1 Vital Signs: 07:40 BP 179 / 66; Pulse 61; Resp 17; Temp 98; Pulse Ox 100% ; Weight 77.11 kg; Height 5 ft. ap3 2 in. ; Pain 7/10; 10:14 BP 157 / 73; Pulse 58; Resp 16; Temp 98.4; Pulse Ox 100% ; me1 07:40 Body Mass Index 31.09 (77.11 kg, 157.48 cm) ap3 07:40 Pain Scale: Adult ap3 ED Course: 07:31 Patient arrived in ED. im 07:32 Sreedhar Morgan MD is Attending Physician. rn 07:42 Triage completed. ap3 07:43 Arm band placed on right wrist. ap3 07:43 Patient has correct armband on for positive identification. Bed in low position. Call ap3 light in reach. Side rails up X 1. Adult w/ patient. Provided Education on: call light education . Pulse ox on. NIBP on. Door closed. Noise minimized. Warm blanket given. 07:47 Lynda Goldstein, BRADEN is Primary Nurse. ap3 07:51 Inserted saline lock: 22 gauge in right antecubital area, using aseptic technique. nh2 Blood collected. Flushed with 10 mL NS. 07:53 CBC with Diff Sent. nh2 07:53 CMP Sent. nh2 07:53 Lipase Sent. nh2 08:59 Abdomen In Process Unspecified. EDMS 10:15 No provider procedures requiring assistance completed. me1 10:15 IV discontinued, intact, bleeding controlled, No redness/swelling at site. Pressure me1 dressing applied. Administered Medications: 08:00 Drug: morphine IVP or IV 2 mg IVP once over 4 mins Route: IVP; Infused Over: 4 mins; ap3 Site: right antecubital; 09:24 Follow up: Response: Pain is decreased ap3 08:00 Drug: Ondansetron IVP 4 mg IVP once; over 2 minutes Route: IVP; Site: right antecubital;ap3 09:24 Follow up: Response: No adverse reaction; Nausea is decreased ap3 08:00 Drug: Gabapentin PO 300 mg PO once Route: PO; ap3 09:24 Follow up: Response: No adverse reaction ap3 09:24 Drug: NS 0.9% IV 500 ml 500 ml IV at 1 bolus once; to be given as a bolus over 30 ap3 minutes Volume: 500 ml; Route: IV; Rate: 1 bolus; Site: right antecubital; 10:16 Follow up: Response: No adverse reaction; IV Status: Completed infusion me1 Medication: 10:15 VIS not applicable for this client. me1 Outcome: 09:58 Discharge ordered by . rn 10:15 Discharged to home ambulatory, with significant other, me1 10:15 Condition: stable 10:15 Discharge instructions given to patient, significant other, Instructed on discharge instructions, follow up and referral plans. medication usage, Demonstrated understanding of instructions, follow-up care, medications, Prescriptions given X 1, 10:15 Patient left the ED. me1 Signatures: Dispatcher [employer] EDMS Sreedhar Morgan MD MD rn Prokisch, Amanda, RN RN ap3 Whit Ames Michelle, RN RN me1 Clint Alvarado Jr nh2
--- NOTE | 2024-07-11 09:59 | EDPHYS ---
Physician Documentation [facility] Name: Roseline Fink Age: 73 yrs Sex: Female : 1950 Arrival Date: 07/11/2024 Time: 07:29 Bed 20 Private MD: ED Physician Sreedhar Morgan HPI: 07/11 07:42 This 73 yrs old Female presents to ER via Ambulatory with complaints of Flank rn Pain, Abdominal Pain, Leg Pain. 07:42 The patient complains of pain in the right low back. rn 07:42 Onset: The symptoms/episode began/occurred 3 day(s) ago. Modifying factors: The rn symptoms are alleviated by nothing. the symptoms are aggravated by movement. Severity of pain: At its worst the pain was moderate in the emergency department the pain is unchanged. The patient has experienced similar episodes in the past. Patient reports right lower back pain that radiates to the right lower abdominal region and down the right leg. Has had sciatica before and has had back surgery in the past. Patient reports pain with movement. No bowel or bladder issues. Does report nausea but thinks secondary to pain. No fever. No blood in stool. No urinary symptoms. No weakness of the leg. Historical: - Allergies: 07:42 No Known Allergies; ap3 - PMHx: 07:42 Diabetes - NIDDM; High Cholesterol; Hypertension; ap3 - PSHx: 07:42 Total abdominal hysterectomy; ap3 - Immunization history:: Client reports receiving the 2nd dose of the Covid vaccine, Flu vaccine is up to date. - Infectious Disease History:: Denies. - Social history:: Smoking status: Patient denies any tobacco usage or history of. - Family history:: not pertinent. - Hospitalizations: : No recent hospitalization is reported. ROS: 07:42 Constitutional: Negative for fever, chills, and weight loss, Back: Positive for lower rn back pain : Negative for injury, bleeding, discharge, and swelling, MS/Extremity: Positive for radiation of pain to right leg, no weakness, no swelling Skin: No rash or discoloration Exam: 07:42 Constitutional: This is a well developed, well nourished patient who is awake, alert, rn and in no acute distress. Cardiovascular: Regular rate and rhythm. No pulse deficits. Abdomen/GI: Soft, right lower quadrant tenderness without rebound or guarding. No distention or masses Back: No midline spinal tenderness. Mild tenderness right lower back region above right buttocks MS/ Extremity: Pulses equal, no cyanosis. Neurovascular intact. Full, normal range of motion. Equal circumference. Neuro: Awake and alert, GCS 15 Vital Signs: 07:40 BP 179 / 66; Pulse 61; Resp 17; Temp 98; Pulse Ox 100% ; Weight 77.11 kg; Height 5 ft. ap3 2 in. ; Pain 7/10; 10:14 BP 157 / 73; Pulse 58; Resp 16; Temp 98.4; Pulse Ox 100% ; me1 07:40 Body Mass Index 31.09 (77.11 kg, 157.48 cm) ap3 07:40 Pain Scale: Adult ap3 MDM: 07:32 Medical Screening Exam initiated rn 09:26 ED course: Pain markedly improved. CT shows recently passed right stone in the bladder. rn Spoke with patient regarding kidney function and has been told by her physician that she has chronic kidney disease and states stage II kidney failure likely secondary to diabetes per her physician. Anticipate discharge home.. 09:57 Differential diagnosis: nephrolithiasis, UTI, Radiculopathy. Data reviewed: vital rn signs, nurses notes, lab test result(s), radiologic studies, CT scan, and as a result, I will discharge patient. Counseling: I had a detailed discussion with the patient and/or guardian regarding the historical points, exam findings, and any diagnostic results supporting the discharge/admit diagnosis, lab results, radiology results, the need for outpatient follow up, to return to the emergency department if symptoms worsen or persist or if there are any questions or concerns that arise at home. Response to treatment: the patient's symptoms have markedly improved after treatment, and as a result, I will discharge patient. Special discussion: I discussed with the patient/guardian in detail that at this point there is no indication for admission to the hospital. It is understood, however, that if the symptoms persist or worsen the patient needs to return immediately for re-evaluation. 07/11 07:41 Order name: CBC with Diff; Complete Time: 08:19 rn 07/11 07:41 Order name: CMP; Complete Time: 08:39 rn 07/11 07:41 Order name: Lipase; Complete Time: 08:39 rn 07/11 08:42 Order name: Abdomen ; Complete Time: 09:08 EDMS 07/11 07:41 Order name: IV Saline Lock; Complete Time: 07:53 rn 07/11 07:41 Order name: Labs collected and sent; Complete Time: 07:53 rn 07/11 09:18 Order name: PO challenge; Complete Time: 09:24 rn Administered Medications: 08:00 Drug: morphine IVP or IV 2 mg IVP once over 4 mins Route: IVP; Infused Over: 4 mins; ap3 Site: right antecubital; 09:24 Follow up: Response: Pain is decreased ap3 08:00 Drug: Ondansetron IVP 4 mg IVP once; over 2 minutes Route: IVP; Site: right antecubital;ap3 09:24 Follow up: Response: No adverse reaction; Nausea is decreased ap3 08:00 Drug: Gabapentin PO 300 mg PO once Route: PO; ap3 09:24 Follow up: Response: No adverse reaction ap3 09:24 Drug: NS 0.9% IV 500 ml 500 ml IV at 1 bolus once; to be given as a bolus over 30 ap3 minutes Volume: 500 ml; Route: IV; Rate: 1 bolus; Site: right antecubital; 10:16 Follow up: Response: No adverse reaction; IV Status: Completed infusion me1 Disposition Summary: 07/11/24 09:58 Discharge Ordered Notes: Location: Home rn Problem: new rn Symptoms: have improved rn Condition: Stable rn Diagnosis - Urinary calculus, unspecified rn Followup: rn - With: Private Physician - When: As needed - Reason: Recheck today's complaints, Re-evaluation by your physician Discharge Instructions: - Discharge Summary Sheet rn - Kidney Stones rn Forms: - Medication Reconciliation Form rn - Antibiotic finished yarn examiner - Prescription Opioid Use rn - Patient Portal Instructions rn - Leadership Thank You Letter rn Prescriptions: - gabapentin 100 mg Oral tablet - take 1 tablet ORAL route 2 times per day As needed; 14 tablet; Refills: 0, rn Product Selection Permitted Signatures: Dispatcher [employer] Sreedhar Rosa MD MD rn Prokisch, Amanda, RN RN ap3 Fabiana Lei RN me1 Corrections: (The following items were deleted from the chart) 08:42 07:41 Abdomen Pelvis W Con+CT.RAD.BRZ ordered. EDMS EDMS
[2024-07-11 10:35] VITALS: O2SAT 100
[2024-07-11 10:37] VITALS: BP 179/66; TEMP 98
== END 2024-07-11 10:15 | disposition home or self-care (01) ==
LOC: ER 07:29
DX: N20.9 Urinary calculus, unspecified (principal)
CPT/HCPCS: 85025; 36415; 83690; 80053; 74176; J2270; J2405; J7040; 96361; 96374; 96375; 99284

== ENCOUNTER 2024-12-01 10:52 | Emergency (ER) | payer OTHER ==
[2024-12-01] MEDS ORDERED: HYDROCODONE/APAP 5/325 MG TAB ONE (10:57)
--- NOTE | 2024-12-01 11:32 | RAD REPORT ---
EXAMINATION: XR Ankle Right 3 View CLINICAL INDICATION: Female, 74 years old. [facility] MAIN PAIN Bed Name: 3 TECHNIQUE: 3 view radiographs of the right ankle were obtained. COMPARISON: No prior exam. FINDINGS: No acute bone or joint abnormality seen. Soft tissue swelling about the ankle anteriorly. M oderate calcaneal spur. IMPRESSION: No acute osseous abnormalities. Soft tissue swelling about the anterior ankle.
--- NOTE | 2024-12-01 11:38 | RAD REPORT ---
EXAMINATION: CT Thorax Wo Con CLINICAL INDICATION: Female, 74 years old. [facility] MAIN right posterior lateral rib trauma Bed Name: IW3 Y TECHNIQUE: Axial CT scan of the chest without intravenous contrast. Multiplanar reformats were genera paulie and reviewed. One or more of the following dose reduction techniques were used: Automated exposure control, adjustment of the mA and/or kV according patient size, and/or iterative reconstruct ion. Unless otherwise specified, incidental findings do not require dedicated imaging follow-up. COMPARISON: 12/12/2021 FINDINGS: LOWER NECK: Visualized thyroid gland and soft tissues are normal. LUNGS: Mild peripheral right upper lobe hazy groundglass opacities with micronodular urinary. Similar less pronounced findings in the medial central right lower lobe No evidence of airspace or interstitial process. No worrisome nodules. PLEURA: No pleural effusion. No pneumothorax. . MEDIASTINUM AND LYMPH NODES: Mild cardiomegaly No mediastinal mass or fluid collection. Normal size m ediastinal, hilar, and axillary lymph nodes. OSSEOUS STRUCTURES AND CHEST WALL: Mildly displaced lateral right second through sixth rib fractures. UPPER ABDOMEN: No significant abnormalities. IMPRESSION: Mildly displaced lateral right second through sixth rib fractures. No other acute findings within the chest. Mild cardiomegaly.
[2024-12-01] MEDS ORDERED: MORPHINE 2 MG/ML SYR ONE (12:59)
--- NOTE | 2024-12-01 13:28 | ER ---
Nurse's Notes [facility] Name: Roseline Fink Age: 74 yrs Sex: Female : 1950 Arrival Date: 12/01/2024 Time: 10:52 Bed 10 Private MD: Diagnosis: Multiple fractures of ribs, right side Presentation: 12/01 11:01 Chief complaint: Patient states: slipped and fell in the shower this morning and hit me1 her right posterior ribs on the tub and twisted her right ankle. Pain level 10/10. Coronavirus screen: At this time, the client does not indicate any symptoms associated with coronavirus-19. Ebola Screen: No symptoms or risks identified at this time. Initial Sepsis Screen: Does the patient meet any 2 criteria? No. Patient's initial sepsis screen is negative. Does the patient have a suspected source of infection? No. Patient's initial sepsis screen is negative. Risk Assessment: Do you want to hurt yourself or someone else? Patient reports no desire to harm self or others. Onset of symptoms was December 01, 2024 at 08:00. 11:01 Method Of Arrival: Wheelchair al1 11:01 Acuity: RAYA 4 me1 Triage Assessment: 11:18 General: Appears uncomfortable, well groomed, well developed, well nourished, Behavior me1 is calm, cooperative, appropriate for age. Pain: Complains of pain in right lateral malleolus and right lateral aspect of the back Pain does not radiate. Pain currently is 10 out of 10 on a pain scale. Quality of pain is described as sharp, shooting, Pain began suddenly, Is continuous. EENT: No signs and/or symptoms were reported regarding the EENT system. Neuro: Level of Consciousness is awake, alert, obeys commands, Oriented to person, place, time, situation, Appropriate for age. Cardiovascular: Patient's skin is warm and dry. Respiratory: Reports pain with respiration since falling this morning. Airway is patent Respiratory effort is even, unlabored, Respiratory pattern is regular, symmetrical. GI: No signs and/or symptoms were reported involving the gastrointestinal system. : No signs and/or symptoms were reported regarding the genitourinary system. Derm: Skin is intact, is healthy with good turgor, Skin is normal. Musculoskeletal: Reports pain in right lateral malleolus and right lateral aspect of the back. Injury Description: slip and fall in shower this morning. Historical: - Allergies: 11:04 No Known Allergies; me1 - PMHx: 11:04 Diabetes - NIDDM; High Cholesterol; Hypertension; Atrial fibrillation; me1 11:04 Kidney disease; me1 - PSHx: 11:04 Total abdominal hysterectomy; me1 - Immunization history:: Adult Immunizations up to date. - Infectious Disease History:: Denies. - Immunization history: Last tetanus immunization: - up to date. - Social history:: Smoking status: Patient denies any tobacco usage or history of. - Family history:: not pertinent. - Hospitalizations: : No recent hospitalization is reported. Screenin:04 Abuse screen: Denies threats or abuse. Denies injuries from another. Tuberculosis nh2 screening: No symptoms or risk factors identified. 13:07 [facility] ED Fall Risk Assessment (Adult) History of falling in the last 3 months, nh2 including since admission Yes- physiologic fall (2 pts) Confusion or Disorientation No (0 pts) Intoxicated or Sedated No (0 pts) Impaired Gait Yes (1 pt) Mobility Assist Device Used Yes (1 pt) Altered Elimination No (0 pt) Score/Fall Risk Level 3 or more points = High Risk Oriented to surroundings, Maintained a safe environment, Educated pt \T\ family on fall prevention, incl call for assistance when getting out of bed, Assessed \T\ reinforced patient's understanding of fall precautions. Nutritional screening: No deficits noted. Assessment: 13:04 General: Appears distressed, uncomfortable, Behavior is cooperative, appropriate for nh2 age, restless. Pain: Complains of pain in R side of chest Pain radiates to right lateral aspect of the back Pain currently is 10 out of 10 on a pain scale. Quality of pain is described as aching, Pain began 4 hours ago. Is continuous, Alleviated by medications, Aggravated by weight bearing. Neuro: Level of Consciousness is awake, alert, obeys commands, Oriented to person, place, time, situation, Appropriate for age. EENT: No signs and/or symptoms were reported regarding the EENT system. Cardiovascular: Denies chest pain, Patient's skin is warm and dry. Respiratory: Reports pain with respiration Airway is patent Trachea midline Respiratory effort is even, unlabored, Respiratory pattern is regular, symmetrical, Denies shortness of breath. GI: Abdomen is round obese. : No signs and/or symptoms were reported regarding the genitourinary system. Denies burning with urination. Derm: Skin is intact, Skin is pink, warm \T\ dry. Musculoskeletal: Range of motion: limited in right shoulder and right elbow. Vital Signs: 11:01 BP 154 / 78; Pulse 54; Resp 16; Temp 98.1; Pulse Ox 100% ; Weight 87.09 kg; Height 5 me1 ft. 2 in. ; Pain 10/10; 13:41 BP 140 / 82; Pulse 61; Resp 19; Temp 98(O); Pulse Ox 100% on R/A; nh2 11:01 Body Mass Index 35.12 (87.09 kg, 157.48 cm) me1 11:01 Pain Scale: [place] [facility] [place] Course: 10:56 Patient arrived in ED. mr 10:57 Sreedhar Morgan MD is Attending Physician. rn 11:04 Triage completed. me1 11:04 Arm band placed on Patient placed in waiting room. me1 11:20 CT Chest Wo Con In Process Unspecified. EDMS 11:23 XRAY Ankle RIGHT 3 view In Process Unspecified. EDMS 12:50 Clint Alvarado Jr, RN is Primary Nurse. nh2 13:04 Patient has correct armband on for positive identification. Bed in low position. Call nh2 light in reach. Side rails up X 1. 13:41 No provider procedures requiring assistance completed. Patient did not have IV access nh2 during this emergency room visit. 13:42 Provided Education on: using call light for assistance. nh2 Administered Medications: 11:07 Drug: HYDROcodone-acetaminophen PO 5 mg-325 mg 1 tabs PO once Route: PO; me1 13:00 Follow up: Response: No adverse reaction; Pain is unchanged, physician notified nh2 13:04 Drug: morphine IM 2 mg IM once Route: IM; Site: right deltoid; nh2 13:42 Follow up: Response: No adverse reaction; Pain is decreased nh2 Medication: 13:41 VIS not applicable for this client. nh2 Outcome: 13:27 Discharge ordered by . rn 13:42 Discharged to home via wheelchair, with significant other, nh2 13:42 Condition: stable 13:42 Discharge instructions given to patient, significant other, Instructed on discharge instructions, follow up and referral plans. no drinking with medication, medication usage, Demonstrated understanding of instructions, follow-up care, medications, Prescriptions given X 2, 13:43 Patient left the ED. nh2 Signatures: Dispatcher [employer] Delmy Morrison Reg Reg mr Nieto, Roman, MD MD rn Eddleman, Michelle, RN RN me1 Clint Alvarado Jr, RN RN nh2
--- NOTE | 2024-12-01 13:28 | EDPHYS ---
Physician Documentation [facility] Name: Roseline Fink Age: 74 yrs Sex: Female : 1950 Arrival Date: 12/01/2024 Time: 10:52 Bed 10 Private MD: ED Physician Sreedhar Morgan HPI: 12/01 11:05 This 74 yrs old Female presents to ER via Wheelchair with complaints of Fall rn Injury. 11:05 Details of fall: The patient fell from an upright position, while standing. Patient rn reports fall in shower this morning at 8 AM. Struck right posterior lateral chest wall on edge of bath. Reports pain to ribs with pain with any motion and deep inspiration. No shortness of breath. Also reports twisted her right ankle but is ambulatory and does not feel broken. Denies any anterior chest pain/abdominal pain/back or spinal pain/hip pain or knee pain. Remembers all events. No head injury. Historical: - Allergies: 11:04 No Known Allergies; me1 - PMHx: 11:04 Diabetes - NIDDM; High Cholesterol; Hypertension; Atrial fibrillation; me1 11:04 Kidney disease; me1 - PSHx: 11:04 Total abdominal hysterectomy; me1 - Immunization history:: Adult Immunizations up to date. - Infectious Disease History:: Denies. - Immunization history: Last tetanus immunization: - up to date. - Social history:: Smoking status: Patient denies any tobacco usage or history of. - Family history:: not pertinent. - Hospitalizations: : No recent hospitalization is reported. ROS: 11:05 Constitutional: Negative for fever, chills, and weight loss, Neck: Negative for injury, rn pain, and swelling, Cardiovascular: Positive for traumatic thoracic injury and pain Respiratory: Negative for shortness of breath, cough, wheezing Abdomen/GI: Negative for abdominal pain, nausea, vomiting, diarrhea, and constipation, Back: Negative for injury and pain, MS/Extremity: Negative for injury and deformity, Skin: Negative for injury, rash, and discoloration, Neuro: Negative for headache, weakness, numbness, tingling, and seizure, Exam: 11:05 Constitutional: This is a well developed, well nourished patient who is awake, alert, rn sitting in wheelchair, appears uncomfortable with movement Head/Face: Normocephalic, atraumatic. Chest/axilla: Right posterior lateral rib mid rib tenderness without crepitus Cardiovascular: Bradycardic, regular. No pulse deficits. Respiratory: Speaking full sentences, unlabored but splints with deep inspiration Abdomen/GI: Soft, nontender, no distention or peritoneal signs MS/ Extremity: Pulses equal, no cyanosis. Neurovascular intact. Full, normal range of motion. Equal circumference. Mild swelling lateral malleolus of the right ankle without deformity. Neuro: Awake and alert, GCS 15 Vital Signs: 11:01 BP 154 / 78; Pulse 54; Resp 16; Temp 98.1; Pulse Ox 100% ; Weight 87.09 kg; Height 5 me1 ft. 2 in. ; Pain 10/10; 13:41 BP 140 / 82; Pulse 61; Resp 19; Temp 98(O); Pulse Ox 100% on R/A; nh2 11:01 Body Mass Index 35.12 (87.09 kg, 157.48 cm) me1 11:01 Pain Scale: Adult me1 MDM: 10:57 Medical Screening Exam initiated rn 13:25 Differential diagnosis: closed head injury, contusion, fracture. Data reviewed: vital rn signs, nurses notes, radiologic studies, CT scan, and as a result, I will discharge patient. Consideration of Admission/Observation Escalation of care including admission/observation considered. Admission considered but pain controlled and no pneumothorax or hemothorax.. Independent interpretation of the following test(s) in the Emergency Department CT Scan: My interpretation is CT chest images negative for pneumothorax per my interpretation. Counseling: I had a detailed discussion with the patient and/or guardian regarding the historical points, exam findings, and any diagnostic results supporting the discharge/admit diagnosis, radiology results, the need for outpatient follow up, to return to the emergency department if symptoms worsen or persist or if there are any questions or concerns that arise at home. Response to treatment: the patient's symptoms have mildly improved after treatment, and as a result, I will discharge patient. Special discussion: I discussed with the patient/guardian in detail that at this point there is no indication for admission to the hospital. It is understood, however, that if the symptoms persist or worsen the patient needs to return immediately for re-evaluation. 13:25 ED course: Had long discussion with patient regarding what not to do with rib rn fractures. Recommend early mobility as well as not splinting or wrapping chest. Concern for pneumonia expressed, I have personally reviewed all of the results, including but not limited to imaging deemed necessary to safely discharge this patient at this time. All results given to and printed out for patient. I personally went over all the results with the patient and answered all questions. Patient will follow-up with PCP and or specialist as discussed. Return precautions given and understood.. 13:28 Independent interpretation of the following test(s) in the Emergency Department X-Ray: rn My interpretation is X-ray right ankle images negative for acute fracture or dislocation per my interpretation. 12/01 11:04 Order name: XRAY Ankle RIGHT 3 view; Complete Time: 11:45 rn 12/01 11:04 Order name: CT Chest Wo Con; Complete Time: 11:45 rn Administered Medications: 11:07 Drug: HYDROcodone-acetaminophen PO 5 mg-325 mg 1 tabs PO once Route: PO; me1 13:00 Follow up: Response: No adverse reaction; Pain is unchanged, physician notified nh2 13:04 Drug: morphine IM 2 mg IM once Route: IM; Site: right deltoid; nh2 13:42 Follow up: Response: No adverse reaction; Pain is decreased nh2 Disposition Summary: 12/01/24 13:27 Discharge Ordered Notes: Location: Home rn Problem: new rn Symptoms: have improved rn Condition: Stable rn Diagnosis - Multiple fractures of ribs, right side rn Followup: rn - With: Private Physician - When: 5 - 6 days - Reason: Recheck today's complaints, Re-evaluation by your physician Discharge Instructions: - Discharge Summary Sheet rn - Rib Fracture rn Forms: - Medication Reconciliation Form rn - Antibiotic internet programmer - Prescription Opioid Use rn - Patient Portal Instructions rn - Leadership Thank You Letter rn Prescriptions: - Tramadol 50 mg Oral Tablet - take 1 tablet ORAL route every 8 hours as needed; 12 tablet; Refills: 0, rn Product Selection Permitted - Cyclobenzaprine 5 mg Oral tablet - take 1 tablet ORAL route every 8-12 hours As needed; 15 tablet; Refills: 0, rn Product Selection Permitted Signatures: Dispatcher [employer] Sreedhar Rosa MD MD rn Eddleman, Michelle, RN RN or1 Clint Alvarado Jr RN RN nh2 Corrections: (The following items were deleted from the chart) 11:05 11:05 Ankle Right 3 View+RAD.[email or web address].BRZ ordered. EDMS EDMS 11: 11:05 Thorax Wo Con+CT.RAD.BRZ ordered. EDMS EDMS 11: 11:05 Constitutional: Negative for fever, chills, and weight loss, Cardiovascular: rn Positive for traumatic thoracic injury and pain Respiratory: Negative for shortness of breath, cough, wheezing Abdomen/GI: Negative for abdominal pain, nausea, vomiting, diarrhea, and constipation, MS/Extremity: Negative for injury and deformity, Skin: Negative for injury, rash, and discoloration, Neuro: Negative for headache, weakness, numbness, tingling, and seizure, rn 11: 11:05 Constitutional: Negative for fever, chills, and weight loss, Neck: Negative for rn injury, pain, and swelling, Cardiovascular: Positive for traumatic thoracic injury and pain Respiratory: Negative for shortness of breath, cough, wheezing Abdomen/GI: Negative for abdominal pain, nausea, vomiting, diarrhea, and constipation, MS/Extremity: Negative for injury and deformity, Skin: Negative for injury, rash, and discoloration, Neuro: Negative for headache, weakness, numbness, tingling, and seizure, rn 12:55 12:55 IS+RC.RAD.BRZ ordered. EDMS EDMS
[2024-12-01 13:56] VITALS: O2SAT 100
[2024-12-01 13:59] VITALS: BP 140/82; TEMP 98
== END 2024-12-01 13:43 | disposition home or self-care (01) ==
LOC: ER 10:52
DX: S22.41XA Multiple fractures of ribs, right side, initial encounter for closed fracture (principal); W18.2XXA Fall in (into) shower or empty bathtub, initial encounter
CPT/HCPCS: 71250; 73610; 96372; 99284; J2270